=== PATIENT | male | born 1990 | race Two or more races ===

== ENCOUNTER 2016-09-07 13:06 | Emergency (ER) | payer SELFPAY | END 2016-09-07 19:28 | disposition left against medical advice (07) | LOC: EME 13:06 | DX: R30.0 Dysuria (principal); Z53.21 Procedure and treatment not carried out due to patient leaving prior to being seen by health care provider ==

== ENCOUNTER 2016-09-10 09:32 | Emergency (ER) | payer OTHER ==
[~2016-09-10] VITALS: Ht 175.3 cm; Wt 75.4 kg
[2016-09-10 09:42] VITALS: BP 102/59
[2016-09-11 12:42] LABS: CHLAMYDIA TRACHOMATIS POSITIVE; NEISSERIA GONORRHOEAE POSITIVE
== END 2016-09-10 12:52 | disposition home or self-care (01) ==
LOC: EME 09:32
PROVIDERS: Nurse Practitioner Family
DX: A56.8 Sexually transmitted chlamydial infection of other sites (principal); A54.9 Gonococcal infection, unspecified; F17.200 Nicotine dependence, unspecified, uncomplicated
CPT/HCPCS: 87491; 87591; 99281; 99284